=== PATIENT | female | born 1945 | race Caucasian/White ===

== ENCOUNTER → 2024-03-05 | Outpatient (CLI) | payer MEDICARE, SELFPAY ==
[2024-03-05 17:47] LABS: Hematocrit 39.1 % (37-47); Mean Corp Hgb Conc 30.7 g/dL (32-36); Mean Corpuscular Hgb 28.2 pg (27.0-32.0); Mean Corpuscular Volume 91.8 fL (81-99); Mean Platelet Vol. 12.2 fl (6.2-12.0); Platelet Count 101 K/mm3 (150-450); RBC Distribution Width CV 14.9 % (11.6-14.6); RBC Distribution Width SD 49.7 fl (35.1-43.9); Red Blood Count 4.26 M/mm3 (4.2-5.4); White Blood Count 5.8 K/mm3 (4.4-11.0)
[2024-03-05 17:59] LABS: International Normalized Ratio 1.2; Prothrombin Time (Protime)PT. 15.2 SECONDS (11.7-14.9)
[2024-03-05 18:00] LABS: Partial Thromboplast Time 33.7 Seconds (24.1-36.2)
[2024-03-05 18:29] LABS: ALB/GLOB Ratio 0.6 RATIO (0.9-2.4); AST(SGOT) 45 U/L (15-37); Alanine Aminotransfer ALT/SGPT 55 U/L (13-56); Albumin, Serum 2.7 g/dL (3.2-5.0); Alkaline Phosphatase 116 U/L (45-117); Anion Gap 4 (5-15); BUN 22 mg/dL (7-18); BUN/Creat Ratio 17.7 RATIO (10-20); Calcium,Total 8.8 mg/dL (8.5-10.1); Chloride 110 mmol/L (98-107); Creatinine, Serum 1.24 mg/dL (0.55-1.02); EST Glomerular Filtration Rate 45 mL/min (>60); Est Glom Filt Rate - Afr Amer 54 mL/min (>60); Globulin 4.9 g/dL (2.2-4.2); Glucose 185 mg/dL (74-106); Potassium 4.5 mmol/L (3.5-5.1); Protein, Total 7.6 g/dL (6.4-8.2); Sodium Level 139 mmol/L (136-145)
[2024-03-07 04:07] LABS: AFP, Tumor Marker 2.7 ng/mL (0.0-9.2)
== END | disposition home or self-care (01) ==
PROVIDERS: Referring Provider Internal Medicine Gastroenterology; Visit Provider Internal Medicine Gastroenterology
DX: K74.60 Unspecified cirrhosis of liver (principal)
CPT/HCPCS: 36415; 80053; 82105; 85027; 85610; 85730

== ENCOUNTER → 2025-11-05 | Outpatient (CLI) | payer MEDICARE, SELFPAY ==
[2025-11-05 15:25] LABS: Hematocrit 32.2 % (37-47); Hemoglobin 10.1 g/dL (12.0-15.0); Immature Granulocytes Count 0.020 X10^3/uL (0.0-0.0); Mean Corp Hgb Conc 31.4 g/dL (32-36); Mean Corpuscular Volume 94.7 fL (81-99); Mean Platelet Vol. 10.9 fl (6.2-12.0); NRBC Flagged by Analyzer 0 % (0-5); POSITIVE MORPHOLOGY YES; Platelet Count 121 K/mm3 (150-450); RBC Distribution Width CV 19.7 % (11.6-14.6); RBC Distribution Width SD 67.9 fl (35.1-43.9); Red Blood Count 3.40 M/mm3 (4.2-5.4); White Blood Count 6.3 K/mm3 (4.4-11.0)
[2025-11-05 15:34] LABS: Prothrombin Time (Protime)PT. 17.0 SECONDS (11.7-14.9)
[2025-11-05 15:40] LABS: Differential Indicated SCAN CRITERIA MET
[2025-11-05 16:08] LABS: AST(SGOT) 31 U/L (<=31); Alanine Aminotransfer ALT/SGPT 28 U/L (<=34); Albumin, Serum 2.6 g/dL (3.4-4.8); Alkaline Phosphatase 100 U/L (35-104); Anion Gap 9 (5-15); BUN 37 mg/dL (4-19); BUN/Creat Ratio 19.8 RATIO (10-20); Calcium,Total 8.7 mg/dL (7.6-11.0); Carbon Dioxide 22.6 mmol/L (21.0-32.0); Chloride 105 mmol/L (98-108); Globulin 4.1 g/dL (2.2-4.2); Glucose 170 mg/dL (70-99); Potassium 5.0 mmol/L (3.3-5.1)
[2025-11-05 16:10] LABS: Ammonia 59.2 umol/L (11-51)
[2025-11-05 17:18] LABS: CRP 24.10 mg/L (0.0-3.0); LDH 198 U/L (84-246)
[2025-11-05 23:16] LABS: Anisocytosis 2+; Differential Comment SCANNED
[2025-11-05 23:17] LABS: Polychromasia 1+
[2025-11-09 15:08] LABS: Anti-Smooth Muscle ABS 16 Units (0-19); Antithrombin 3 Function 62 % (75-135); Cytoplasmic Ab (C-ANCA) <1:20 titer (Neg:<1:20); Immunoglobulin A 787 mg/dL (64-422); Perinuclear Ab (P-ANCA) <1:20 titer (Neg:<1:20)
== END | disposition home or self-care (01) ==
LOC: LAB 15:02
PROVIDERS: Referring Provider Internal Medicine Gastroenterology; Visit Provider Internal Medicine Gastroenterology
DX: K74.60 Unspecified cirrhosis of liver (principal); D64.9 Anemia, unspecified
CPT/HCPCS: 36415; 80053; 82105; 82140; 82784; 83516; 83615; 85025; 85300; 85610; 85652; 86037; 86140; 86255

== ENCOUNTER 2025-11-13 10:16 | Outpatient (CLI) | payer MEDICARE, SELFPAY | END 2025-11-13 23:59 | disposition home or self-care (01) | LOC: MEDOUTP 10:17 | PROVIDERS: Referring Provider Internal Medicine Gastroenterology; Visit Provider Internal Medicine Gastroenterology | DX: Z00.00 Encounter for general adult medical examination without abnormal findings (principal) ==

== ENCOUNTER → 2025-11-13 | Outpatient (CLI) | payer MEDICARE, SELFPAY ==
--- NOTE | 2025-11-13 08:24 | US_ITS ---
PROCEDURE: PARACENTESIS WITH US 11/13/2025 REASON FOR EXAM: ASCITES TECHNIQUE: PARACENTESIS WITH US, diagnostic and therapeutic COMPARISON: None provided. FINDINGS: Following informed consent, and using standard sterile technique, an ultrasound- guided diagnostic and therapeutic abdominal paracentesis was performed. 2% lidocaine local anesthesia was followed by placement of a 5 [place] Yueh catheter into the right abdominal fluid collection. Approximately 9270 mL clear light yellow fluid was successfully removed. A portion was sent to the laboratory for evaluation. No complication was encountered, and the patient left the department in good condition without significant complaint. US/Paracentesis with US IMPRESSION: Successful ultrasound-guided diagnostic and therapeutic right abdominal paracen tesis. Laboratory results pending. Reading Location: [place] [address]
[2025-11-13] MEDS: Lidocaine 2% (20 ml mdv) 20 ML Vial INFILT (09:01)
--- NOTE | 2025-11-13 09:03 | FLU_PTH ---
PATIENT: ROBBI ESPINOZA LOC: [facility]#:[id number] AGE/SX: 80/F ROOM: RE11/13/[address]: Dr. Mert Varma DO : 1945 BED: DIS: 11/13/2025 SPEC #: [id number] RECD: 11/13/25 09:43 STATUS: [place]IS REQ #: [id number] JASMEET: 11/13/25 09:[address]: Mert Varma DEPT: CYTOLOGY RECD BY: Servando Kirkland ENTERED: 11/13/25 11:12 SP TYPE: Fluid OTHR DR: Dr. Shelli Ramos, Tissues: A - PARACENTESIS FLUID Procedures: Special Stain Group II Surgery Specimen Level IV Cytospin Fluid HEADER OPERATION: Ultrasound guided paracentesis PRE-OP DIAGNOSIS: Ascites TISSUE SUBMITTED: A- Paracentesis fluid for cytology DIAGNOSIS CYTOLOGY A. Ascites, paracentesis (cytospin, cellblock): No malignant cells identified. Mild acute inflammation, macrophages, reactive mesothelial cells. CYTOLOGY STUDY Slides are reviewed. CYTOLOGY GROSS A. Received is 150 ml of [id number] fluid labeled with the patient's name and and designated per the requisition as Paracentesis fluid. Submitted for cytology and cell block preparation. Mr 11/13/2025 CPT: 34675,21093
[2025-11-13] MEDS: 0.9% Saline Lock 10 ML Syringe IV ×2 (10:00→10:49)
[2025-11-13 10:04] VITALS: BP 106/80; PULSE 74; RESP 18; O2SAT 92
[2025-11-13 10:06] VITALS: BP 100/50; PULSE 73; RESP 18; O2SAT 93
[2025-11-13 10:19] VITALS: BP 100/50; PULSE 73; RESP 18; O2SAT 93
[2025-11-13 10:20] VITALS: BP 86/41; PULSE 74; RESP 18; O2SAT 96
[2025-11-13 10:21] VITALS: BP 98/38; PULSE 71; RESP 18; O2SAT 96
[2025-11-13] MEDS: Albumin Human 25% (100 mL) 25 GM/100 ML BAG IV ×2 (10:49→12:12)
[2025-11-13 14:08] VITALS: BP 91/53; PULSE 78; RESP 16; O2SAT 93
== END | disposition home or self-care (01) ==
PROVIDERS: Referring Provider Internal Medicine Gastroenterology; Visit Provider Internal Medicine Gastroenterology
DX: R18.8 Other ascites (principal); K74.60 Unspecified cirrhosis of liver
CPT/HCPCS: 49083; 88108; 88305; 88313; 96365; 96366; P9047; A4216